=== PATIENT | female | born 1995 | race Caucasian/White ===

== ENCOUNTER 2022-05-31 09:05 | Inpatient (IN) | payer BC, SELFPAY ==
[2022-05-31] MEDS ORDERED: hydrALAZINE 20 MG/ML VIAL SLOW IVP PRN ×4 (09:33→19:58)
[2022-05-31] MEDS ORDERED: Promethazine HCl 25 MG/ML VIAL IM PRN ×2 (09:33→19:48)
[2022-05-31] MEDS ORDERED: Ondansetron PF 4 MG/2 ML Vial IVP PRN ×3 (09:33→19:58)
[2022-05-31] MEDS ORDERED: Famotidine/PF 20 mg/2ml Vial SLOW IVP PRN ×2 (09:33→16:00)
[2022-05-31] MEDS ORDERED: Bicitra 30 ML UDCUP PO PRN ×2 (09:33→16:01)
[2022-05-31] MEDS ORDERED: Lorazepam 2 MG/ML VIAL SLOW IVP PRN (09:36)
[2022-05-31] MEDS ORDERED: Labetalol HCl 100 MG/20 ML VIAL SLOW IVP PRN ×2 (09:36)
[2022-05-31] MEDS ORDERED: Calcium Gluc 4.6 MEQ/10 ML (100 MG/ML) SLOW IVP PRN (09:36)
[2022-05-31 10:17] LABS: Hemoglobin 11.1 g/dL (12.0-15.5); Mean Corpuscular HGB CONC 34.5 g/dL (32.0-36.0); Mean Corpuscular Hemoglobin 28.5 pg (27.0-33.0); Mean Corpuscular Volume 82.8 fl (81.6-98.3); Mean Platelet Volume 11.2 fl (7.4-10.4); Platelet Count 207 10x3/uL (150-450); RBC Distribution Width 14.6 % (11.5-14.5); Red Blood Cell (RBC) Count 3.89 10x6/uL (3.90-5.03); White Blood Cell (WBC) Count 7.4 10x3/uL (3.5-10.5)
[2022-05-31 10:44] LABS: HIV (1/2) Antibody/Antigen Non-Reactive (NonReactive); HIV 1/2 INDEX 0.13 S/CO (<1.00); Hep B Surf Ag Non-Reactive S/CO (NonReactive)
[2022-05-31 10:50] LABS: Syphilis Antibody Nonreactive (Nonreactive); Syphilis Antibody Index 0.03 S/CO (<1.00 Non-Reactive)
[2022-05-31 11:08] LABS: HBSAg Index 0.21 S/CO (0-0.99)
[2022-05-31 11:49] LABS: SARS-CoV-2 NAA Rapid Test Not Detected (NotDetected)
[2022-05-31 17:50] VITALS: BMI 37.2
[2022-05-31] MEDS ORDERED: Fentanyl 100 MCG/2 ML VIAL ONE (18:17)
[2022-05-31] MEDS ORDERED: Morphine PF 10 MG/10 ML VIAL ONE (18:17)
[2022-05-31] MEDS ORDERED: Oxytocin 10 UNITS/ML VIAL ONE ×2 (18:19→19:13)
[2022-05-31] MEDS ORDERED: Ondansetron PF 4 MG/2 ML Vial ONE (18:53)
[2022-05-31] MEDS ORDERED: Ketorolac Tromethamine 30 MG/ML VIAL ONE (18:53)
[2022-05-31] MEDS ORDERED: ePHEDrine Sulfate 50 MG/10 ML VIAL ONE (19:06)
[2022-05-31] MEDS ORDERED: Naloxone HCl 0.4 mg/ml Vial IV PRN (19:48)
[2022-05-31] MEDS ORDERED: Promethazine HCl 25 MG SUPP PR PRN (19:48)
[2022-05-31] MEDS ORDERED: Meperidine HCl/PF 25 MG/ML VIAL SLOW IVP PRN (19:48)
[2022-05-31] MEDS ORDERED: Moisturizing Cream (Eucerin) 113 GM JAR TOP PRN (19:48)
[2022-05-31] MEDS ORDERED: Naloxone HCl 0.4 mg/ml Vial IVP PRN ×2 (19:48)
[2022-05-31] MEDS ORDERED: diphenhydrAMINE 50 MG/ML VIAL IVP PRN (19:48)
[2022-05-31] MEDS ORDERED: HYDROmorphone 2 MG/ML VIAL SLOW IVP PRN (19:48)
[2022-05-31] MEDS ORDERED: Ketorolac Tromethamine 30 MG/ML VIAL IVP PRN (19:48)
[2022-05-31] MEDS ORDERED: Ondansetron HCl/PF 4 MG/2 ML Vial IVP PRN (19:48)
[2022-05-31] MEDS ORDERED: Fentanyl 100 MCG/2 ML VIAL SLOW IVP PRN (19:48)
[2022-05-31] MEDS ORDERED: Misoprostol 200 MCG TAB PR PRN (19:58)
[2022-05-31] MEDS ORDERED: Lanolin Ointment 7 GM TUBE TOP PRN (19:58)
[2022-05-31] MEDS ORDERED: Boostrix 0.5 ML (Tdap) VIAL IM ONE (19:58)
[2022-05-31] MEDS ORDERED: Acetaminophen 325 MG TAB PO PRN (19:58)
[2022-05-31] MEDS ORDERED: diphenhydrAMINE 25 MG CAP PO PRN (19:58)
[2022-05-31] MEDS ORDERED: Bisacodyl 10 MG SUPP PR PRN (19:58)
[2022-05-31] MEDS ORDERED: Communication Order-Pharmacy FS SCH (20:00)
[2022-05-31] MEDS ORDERED: NS w/ Oxytocin 30 units 500 ML IV SCH (20:00)
[2022-05-31] MEDS ORDERED: Meperidine HCl/PF 25 MG/ML VIAL ONE (21:13)
[2022-06-01] MEDS: Docusate 100 MG CAP PO SCH ×3 (00:04→21:18)
[2022-06-01] MEDS: Ferrous Sulfate 325 MG TAB PO SCH ×3 (00:05→21:18)
[2022-06-01 04:28] LABS: Hemoglobin 9.5 g/dL (12.0-15.5); Mean Corpuscular HGB CONC 33.5 g/dL (32.0-36.0); Mean Corpuscular Hemoglobin 28.3 pg (27.0-33.0); Mean Corpuscular Volume 84.5 fl (81.6-98.3); Mean Platelet Volume 10.9 fl (7.4-10.4); Platelet Count 149 10x3/uL (150-450); RBC Distribution Width 14.6 % (11.5-14.5); Red Blood Cell (RBC) Count 3.36 10x6/uL (3.90-5.03); White Blood Cell (WBC) Count 11.2 10x3/uL (3.5-10.5)
[2022-06-01] MEDS: Lactated Ringer's 1,000 ML IV SCH ×4 (06:31→21:21)
[2022-06-01] MEDS ORDERED: Zolpidem Tartrate 5 MG TAB PO PRN (08:00)
[2022-06-01] MEDS ORDERED: HYDROcodone/Acetaminophen 5/325 mg Tablet PO PRN (08:00)
[2022-06-01] MEDS: Prenatal Vitamin 1 TAB PO SCH (08:18)
[2022-06-01] MEDS: HYDROcodone/Acetaminophen 5/325 mg Tablet PO PRN ×2 (08:19→20:24)
[2022-06-01] MEDS: Ibuprofen 800 MG TAB PO SCH ×2 (13:56→21:18)
[2022-06-01] MEDS: Simethicone Chewable 80 MG TAB PO PRN ×2 (13:56→18:31)
[2022-06-02] MEDS: HYDROcodone/Acetaminophen 5/325 mg Tablet PO PRN ×2 (01:56→13:00)
[2022-06-02] MEDS: Simethicone Chewable 80 MG TAB PO PRN ×2 (01:56→21:33)
[2022-06-02] MEDS: Lactated Ringer's 1,000 ML IV SCH ×3 (04:11→20:02)
[2022-06-02] MEDS: Ibuprofen 800 MG TAB PO SCH ×3 (05:58→21:32)
[2022-06-02] MEDS: Docusate 100 MG CAP PO SCH ×2 (09:31→21:32)
[2022-06-02] MEDS: Prenatal Vitamin 1 TAB PO SCH (09:31)
[2022-06-02] MEDS: Ferrous Sulfate 325 MG TAB PO SCH (21:31)
[2022-06-03] MEDS: Lactated Ringer's 1,000 ML IV SCH (05:00)
[2022-06-03] MEDS: Ibuprofen 800 MG TAB PO SCH (05:12)
[2022-06-03 08:00] VITALS: BP 123/67; TEMP 98.1
[2022-06-03] MEDS: Docusate 100 MG CAP PO SCH (09:48)
[2022-06-03] MEDS: Ferrous Sulfate 325 MG TAB PO SCH (09:48)
[2022-06-03] MEDS: Prenatal Vitamin 1 TAB PO SCH (09:48)
== END 2022-06-03 17:05 | disposition home or self-care (01) | DRG 788 ==
LOC: CSHLD 09:05 → CSHPED 22:20
PROVIDERS: ADMIT Obstetrics & Gynecology; ATTEND Obstetrics & Gynecology
PROC: 10D00Z1 Extraction of Products of Conception, Low, Open Approach (ICD-10-PCS; principal; 2022-05-31)
DX: O10.92 Unspecified pre-existing hypertension complicating childbirth (principal); O34.211 Maternal care for low transverse scar from previous cesarean delivery; Z20.822 Contact with and (suspected) exposure to COVID-19; Z88.0 Allergy status to penicillin; Z3A.38 38 weeks gestation of pregnancy; O11.4 Pre-existing hypertension with pre-eclampsia, complicating childbirth; O32.8XX0 Maternal care for other malpresentation of fetus, not applicable or unspecified; O99.62 Diseases of the digestive system complicating childbirth; K66.0 Peritoneal adhesions (postprocedural) (postinfection); O90.0 Disruption of cesarean delivery wound
CPT/HCPCS: 36415; 51702; 85027; 86780; 86850; 86900; 86901; 87340; 87389; J1200; J1885; J2175; J2274; J2405; J2590; J3010; S0028; U0002